=== PATIENT | female | born 1965 ===

== ENCOUNTER → 2020-12-15 | Day surgery (SDC) | payer OTHER ==
[~2020-12-15] MED LIST: SYNTHROID50 MCG PO
== END | disposition home or self-care (01) ==
LOC: EDSTATUS 12-01 08:15 → MAMO-SONO 12-01 08:15 → CIR.AMB 07:11
PROVIDERS: ATTEND Surgery
DX: D05.01 Lobular carcinoma in situ of right breast (principal); D05.11 Intraductal carcinoma in situ of right breast; N62 Hypertrophy of breast; Z90.11 Acquired absence of right breast and nipple; Z20.822 Contact with and (suspected) exposure to COVID-19

== ENCOUNTER 2022-05-24 07:08 | Day surgery (SDC) | payer OTHER ==
[~2022-05-24] VITALS: Ht 152.4 cm; Wt 75.7 kg
[~2022-05-24 07:08] MED LIST changes: +ANASTROZOLE1 MG PO; +LIPITOR PO
== END 2022-05-24 17:30 | disposition home or self-care (01) ==
LOC: CIR.AMB 07:08
PROVIDERS: ATTEND Surgery
DX: D24.2 Benign neoplasm of left breast (principal); L90.5 Scar conditions and fibrosis of skin; N60.32 Fibrosclerosis of left breast; R92.1 Mammographic calcification found on diagnostic imaging of breast; E03.9 Hypothyroidism, unspecified; Z88.5 Allergy status to narcotic agent; Z20.822 Contact with and (suspected) exposure to COVID-19
CPT/HCPCS: 19301; 19281; L8699